=== PATIENT | male | born 2000 | race Hispanic/Latino ===

== ENCOUNTER 2023-11-17 06:07 | Emergency (ER) | payer OTHER ==
[2023-11-17] MEDS ORDERED: Lidocaine 1% PF 5 ML VIAL ONE (06:26)
[2023-11-17] MEDS ORDERED: Boostrix 0.5 ML (Tdap) VIAL (>/=7 yrs of age) ONE (06:26)
[2023-11-17] MEDS ORDERED: Lidocaine 1% (PF) 30 ML VIAL ONE (06:27)
[2023-11-17] MEDS ORDERED: CEFAZOLIN 1 GM VIAL ONE (06:28)
[2023-11-17] MEDS ORDERED: Sterile Water 10 ML ONE (06:30)
[2023-11-17] MEDS ORDERED: Bacitracin 1 PK ONE (07:30)
== END 2023-11-17 08:00 | disposition home or self-care (01) ==
LOC: MADERS 06:07
DX: S68.622A Partial traumatic transphalangeal amputation of right middle finger, initial encounter (principal); Z23 Encounter for immunization; W23.0XXA Caught, crushed, jammed, or pinched between moving objects, initial encounter
CPT/HCPCS: 11730; 90471; 90715; 96372; J0690; J2001